=== PATIENT | female | born 1970 | race Asian ===

== ENCOUNTER 2017-07-17 08:27 | Day surgery (SDC) | payer BC ==
[~2017-07-17] VITALS: Ht 152.4 cm; Wt 59.9 kg
[2017-07-17] MEDS ORDERED: CLONIDINE PO (09:21)
[2017-07-17] MEDS ORDERED: LOSARTAN PO (09:21)
[2017-07-17 09:24] VITALS: Ht 152.4 cm; Wt 59.9 kg
[2017-07-17] MEDS ORDERED: MIDAZOLAM 1 MG/ML 2 ML INJ ONE ×2 (10:17)
[2017-07-17] MEDS ORDERED: FENTAnyl 50 MCG/ML VIAL ONE (10:17)
--- NOTE | 2017-07-17 10:19 | OPPN ---
Date/Time of Note Date/Time of Note DATE: 07/17/17 TIME: 10:18 Operative Report Preoperative Diagnosis Screening Postoperative Diagnosis Diverticulosis of the colon Internal hemorrhoids No colon neoplasm is identified Operation/Procedure Performed Colonoscopy Surgeon see signature line assistant site manager None Anesthesia: moderate sedation Estimated blood loss: none Transfusion Required none Specimen None Grafts/Implants none Complications none MARYCHUY CRUZ MD Jul 17, 2017 10:19
[2017-07-17 10:45] VITALS: BP 114/74; PULSE 51; RESP 18
--- NOTE | 2017-07-17 15:57 | GILP ---
DATE OF PROCEDURE: NAME OF PROCEDURE: Colonoscopy. SURGEON: Marychuy Sauceda MD PREOPERATIVE DIAGNOSIS: Screening colonoscopy. POSTOPERATIVE DIAGNOSES: 1. Colonoscopy all the way to the cecum. 2. Diverticulosis of the colon. 3. Internal hemorrhoids. 4. No colon neoplasm was identified. INDICATION FOR THE PROCEDURE: Ms. Chula Henry is a 47-year-old female patient who had diverti culosis of the colon. She also had history of diverticulitis. 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 She never had screening colonoscopy. The procedure and possible complications were well explained to the patient, she understood and cons ented to the procedure. DESCRIPTION OF PROCEDURE: Under the influence of fentanyl and Versed, the colonoscope was carefully introduced in the rectum and under direct vision it was advanced all the way to the cecum. FINDINGS: The patient had diverticulosis of the colon. She also had internal hemorrhoids. No colo n neoplasm was identified. No definite fistula was seen. She tolerated the procedure very well and there was no complication from the procedure. At the end of the procedure she was awake with stable vital signs and she was discharged home to the care of he r family. IMPRESSION: Please see postoperative diagnosis. PLAN: 1. High fiber diet. 2. Next screening colonoscopy in 10 years. Follow up with the urologist for further evaluation of repeat urinary tract infection. Dictated By: MARYCHUY GRAVES/HELLEN Conf#: [id number] DID#: [id number]
== END 2017-07-17 11:58 | disposition home or self-care (01) ==
LOC: GIL 08:27
PROVIDERS: ATTEND Internal Medicine Gastroenterology
DX: Z12.11 Encounter for screening for malignant neoplasm of colon (principal); K57.90 Diverticulosis of intestine, part unspecified, without perforation or abscess without bleeding; K64.8 Other hemorrhoids; I10 Essential (primary) hypertension
CPT/HCPCS: 45378; 84703; J2250; J3010; Z7610

== ENCOUNTER 2017-10-24 21:47 | Inpatient (IN) | END 2017-10-31 20:10 | disposition home health service (06) | DRG 872 ==

== ENCOUNTER 2017-11-06 15:37 | Outpatient (CLI) | END 2017-11-06 16:39 | disposition home or self-care (01) ==

== ENCOUNTER 2017-11-17 14:32 | Outpatient (CLI) | END 2017-11-17 17:00 | disposition home or self-care (01) ==

== ENCOUNTER 2017-11-29 08:00 | Day surgery (SDC) | END 2017-11-29 14:18 | disposition home or self-care (01) ==

== ENCOUNTER 2019-03-15 12:28 | Emergency (ER) | payer BC ==
[~2019-03-15] VITALS: Ht 157.5 cm; Wt 60.1 kg
[~2019-03-15 12:28] MED LIST: HYDR-3671 PO
[2019-03-15 12:34] VITALS: Ht 157.5 cm; Wt 60.1 kg
--- NOTE | 2019-03-15 13:58 | ERD ---
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 Over the past several days to week patient has had leakage from the connection site between the nephrostomy tube and Flanagan tube. No leakage from entry site into skin.. No fever no chills no abdominal pain no other symptoms. ROS All systems reviewed and are negative except as per history of present illness. Medications Home Meds Reported Medications Hydralazine Hcl* (Hydralazine Hcl*) 25 Mg Tab, 25 MG PO BID PRN for ELEVATED BLOOD PRESSURE, #60 TAB 03/15/19 Discontinued Reported Medications Hydralazine Hcl* (Hydralazine Hcl*) 25 Mg Tab, 25 MG PO BID, #60 TAB 10/24/17 Allergies Allergies: Coded Allergies: No Known Allergy (Unverified , 03/15/19) PMhx/Soc Medical and Surgical Hx: pt denies Surgical Hx History of Surgery: Yes (LT TOTAL KNEE REPL, TUBAL LIGATION, UTI WITH SEPSIS, NEPHROSTOMY BAG) Anesthesia Reaction: No Hx Neurological Disorder: No Hx Respiratory Disorders: Yes (ASTHMA) Hx Cardiac Disorders: No Hx Psychiatric Problems: No Hx Miscellaneous Medical Probl: Yes (Nephrostomy tube secondary to obstruction) Hx Alcohol Use: No Hx Substance Use: No Hx Tobacco Use: No Physical Exam Vitals Vital Signs Date Temp Pulse Resp B/P (MAP) Pulse Ox O2 O2 Flow FiO2 Time Delivery Rate 03/15/19 98.9 91 20 131/82 97 12:34 (98) Physical Exam Const: No acute distress Head: Atraumatic Eyes: Normal Conjunctiva ENT: Normal External Ears, Nose and Mouth. Neck: Full range of motion. No meningismus. Resp: Clear to auscultation bilaterally Cardio: Regular rate and rhythm, no murmurs Abd: Soft, non tender, non distended. Normal bowel sounds Skin: No petechiae or rashes. Nephrostomy tube entry site on left flank clean dry intact. Mild leakage around nephrostomy tube connection site Back: No midline or flank tenderness Ext: No cyanosis, or edema Neur: Awake and alert Psych: Normal Mood and Affect Procedures/MDM IR was notified and replaced the tubing from connection site and distally. No more leakage. Patient was discharged with strict return precautions. Departure Diagnosis: Primary Impression: Nephrostomy status Condition: Stable YOGESH BALBUENA MD Mar 15, 2019 13:58
[2019-03-15 14:53] VITALS: BP 156/84; PULSE 77; RESP 18
== END 2019-03-15 14:55 | disposition home or self-care (01) ==
LOC: E/R 12:28
DX: Z93.6 Other artificial openings of urinary tract status (principal); J45.909 Unspecified asthma, uncomplicated; R40.2142 Coma scale, eyes open, spontaneous, at arrival to emergency department; R40.2252 Coma scale, best verbal response, oriented, at arrival to emergency department; R40.2362 Coma scale, best motor response, obeys commands, at arrival to emergency department
CPT/HCPCS: 99282; Z7610